=== PATIENT | female | born 1955 | race African-American/Black ===

== ENCOUNTER 2017-02-26 03:51 | Emergency (ER) | payer OTHER ==
[~2017-02-26] VITALS: Ht 158.8 cm; Wt 67.0 kg
[~2017-02-26 03:51] MED LIST: GABA800T PO; HYDR25TA PO; PARO40TA PO
[2017-02-26] MEDS ORDERED: ONDANSETRON HCL 4 MG/2 ML VIAL IVP ONE (04:45)
[2017-02-26] MEDS ORDERED: HYDROmorphone 2 MG/ML SYRINGE IVP ONE ×3 (04:45→08:00)
[2017-02-26] MEDS ORDERED: CLINDAMYCIN 900 MG/D5% WATER 50 ML IV ONE (04:45)
[2017-02-26 05:10] LABS: BASOPHILS # (AUTO) 0.04 K/uL (0.00-0.20); BASOPHILS % (AUTO) 0.5 % (0.0-2.0); EOSINOPHILS # (AUTO) 0.14 K/uL (0.00-0.70); EOSINOPHILS % (AUTO) 1.61 % (1.0-6.0); HEMATOCRIT 35.7 % (36-46); HEMOGLOBIN 11.7 g/dL (12.0-16.0); LYMPHOCYTES # (AUTO) 1.4 K/uL (1.0-4.8); LYMPHOCYTES % (AUTO) 15.5 % (22.0-44.0); MEAN CORPUSCULAR HEMOGLOBIN 30.9 pg (26.0-34.0); MEAN CORPUSCULAR HGB CONC 32.8 G/dL (31.0-37.0); MEAN CORPUSCULAR VOLUME 94 fL (80-100); MONOCYTES # (AUTO) 0.6 K/uL (0.1-1.0); MONOCYTES % (AUTO) 6.8 % (2.0-9.0); NEUTROPHILS # (AUTO) 6.7 K/uL (1.8-7.7); NEUTROPHILS % (AUTO) 75.7 % (40.0-70.0); PLATELET COUNT (AUTO) 416 K/uL (150-450); RED BLOOD CELL COUNT(AUTO) 3.79 MIL/uL (4.00-5.20); RED CELL DISTRIBUTION WIDTH 13.3 % (11.5-14.5); WHITE BLOOD COUNT (AUTO) 8.9 K/uL (4.5-11.0)
[2017-02-26 05:31] LABS: ALANINE AMINOTRANSFERASE 24 U/L (12-78); ALBUMIN 3.7 g/dL (3.4-5.0); ANION GAP 8 mmol/L (8-16); ASPARTATE AMINOTRANSFERASE 42 U/L (15-37); BILIRUBIN,TOTAL 0.3 mg/dL (0.1-1.0); CALCIUM, TOTAL 9.4 mg/dL (8.8-10.5); CARBON DIOXIDE 30 mmol/L (22-29); CHLORIDE 94 mmol/L (98-107); CREATININE 0.77 mg/dL (0.60-1.30); GLOMERULAR FILTR. RATE CALC > 60 mL/min (>60); SODIUM SERUM 132 mmol/L (136-145); TOTAL PROTEIN, SERUM 8.7 g/dL (6.4-8.2); UREA NITROGEN, BLOOD 18 mg/dL (7-18)
[2017-02-26 05:33] LABS: POTASSIUM 2.6 mmol/L (3.5-5.1)
[2017-02-26] MEDS ORDERED: POTASSIUM CHL 10 MEQ/WATER 50 ML IV ONE (05:45)
[2017-02-26] MEDS ORDERED: SODIUM CHLORIDE 0.9% 100 ML ONE (06:00)
[2017-02-26] MEDS ORDERED: IOVERSOL 350 MG/ML 100 ML VIAL ONE (06:00)
[2017-02-26] MEDS ORDERED: POTASSIUM CHLORIDE 20 MEQ ER TABLET PO ONE (06:45)
[2017-02-26] MEDS ORDERED: SODIUM CHLORIDE 0.9% 250 ML IV ONE ×2 (07:54→10:32)
[2017-02-26 10:30] VITALS: BP 138/86
== END 2017-02-26 11:15 | disposition short-term general hospital (02) ==
LOC: EMS 03:52
DX: K08.89 Other specified disorders of teeth and supporting structures (principal); I10 Essential (primary) hypertension; F17.200 Nicotine dependence, unspecified, uncomplicated
CPT/HCPCS: 36415; 70487; 80053; 85025; 87040; 93005; 93041; 96365; 96375; 96376; 99285; J1170; J2405; J3480; J3490; J7050 ×2; Q9967; 96366